=== PATIENT | male | born 1985 | race Hispanic/Latino ===

== ENCOUNTER 2020-10-29 18:53 | Emergency (ER) | payer OTHER ==
[2020-10-29] MEDS ORDERED: CEPHALEXIN 500 MG CAPSULE ONE (19:11)
[2020-10-29] MEDS ORDERED: ACETAMINOPHEN EXTRA STRENGTH 500 MG TABLET ONE (19:11)
[2020-10-29] MEDS ORDERED: TETANUS/DIPHTHERIA TOXOID [ADULT] 0.5 ML VIAL IM ONE (19:11)
== END 2020-10-29 19:44 | disposition home or self-care (01) ==
LOC: EDH 18:53
DX: S81.811A Laceration without foreign body, right lower leg, initial encounter (principal); X58.XXXA Exposure to other specified factors, initial encounter; Y93.89 Activity, other specified; Y92.89 Other specified places as the place of occurrence of the external cause; Y99.8 Other external cause status
CPT/HCPCS: 12002; 73590; 82948; 90471; 90714